=== PATIENT | male | born 1970 | race Caucasian/White ===

== ENCOUNTER → 2018-05-11 08:38 | Outpatient (CLI) | payer OTHER, SELFPAY | PROVIDERS: Family Provider Family Medicine; PCP Family Medicine; Visit Provider Registered Nurse | DX: I37.1 Nonrheumatic pulmonary valve insufficiency (principal); I51.9 Heart disease, unspecified | CPT/HCPCS: 82570; 83497 ==

== ENCOUNTER → 2018-10-28 08:50 | Outpatient (CLI) | payer OTHER, SELFPAY ==
[2018-10-28 10:59] LABS: Thyroid Stimulating Hormone 1.03 uIU/mL (0.47-4.68)
== END ==
PROVIDERS: Family Provider Family Medicine; PCP Family Medicine; Visit Provider Family Medicine
DX: E89.0 Postprocedural hypothyroidism (principal)
CPT/HCPCS: 36415; 84443

== ENCOUNTER → 2019-10-15 08:31 | Outpatient (CLI) | payer OTHER, SELFPAY ==
[2019-10-15 09:41] LABS: Thyroid Stimulating Hormone 0.95 uIU/mL (0.47-4.68)
== END ==
PROVIDERS: PCP Family Medicine; Visit Provider Family Medicine
DX: E89.0 Postprocedural hypothyroidism (principal)
CPT/HCPCS: 36415; 84443

== ENCOUNTER → 2020-07-04 09:02 | Outpatient (CLI) | payer OTHER, SELFPAY | PROVIDERS: PCP Family Medicine; Referring Provider Family Medicine; Visit Provider Family Medicine | DX: E89.0 Postprocedural hypothyroidism (principal) | CPT/HCPCS: 36415; 84443 ==

== ENCOUNTER → 2020-10-04 09:44 | Outpatient (CLI) | payer OTHER, SELFPAY ==
[2020-10-04 11:04] LABS: COVID19 -Nasal RAPID Negative (Negative)
== END ==
PROVIDERS: PCP Family Medicine; Visit Provider Nurse Practitioner
DX: Z20.828 Contact with and (suspected) exposure to other viral communicable diseases (principal)
CPT/HCPCS: 87635

== ENCOUNTER → 2021-02-07 09:41 | Outpatient (CLI) | payer OTHER, SELFPAY ==
[2021-02-07 10:53] LABS: Add Manual Diff / Slide Review NO; Basophils Absolute Auto 100 /uL (0-100); Basophils Percent Auto 0.9 % (0-2); Eosinophils Absolute Auto 100 /uL (0-450); Eosinophils Percent Auto 2.3 % (2-4); Hemoglobin 15.3 g/dL (13.5-17.5); Lymphocytes Absolute Auto 1200 /uL (1100-4500); Lymphocytes Percent Auto 20.8 % (25-40); Mean Corpuscular HGB Conc 33.9 % (30-36); Mean Corpuscular Hemoglobin 29.7 PG (26-34); Mean Corpuscular Volume 87.5 fL (80-100); Monocytes Absolute Auto 600 /uL (0-900); Monocytes Percent Auto 9.4 % (3-14); Neutrophils Absolute Auto 3900 /uL (1500-7000); Neutrophils Percent Auto 66.6 % (50-75); Platelet Count 285 X10^3/uL (150-400); Red Blood Cell Count 5.15 X10^6/uL (4.5-5.9); Red Cell Distribution Width 13.6 % (11.6-14.8); White Blood Cell Count 5.9 X10^3/uL (4.5-11.0)
[2021-02-07 11:10] LABS: Alanine Aminotransferase 21 IU/L (<50); Albumin 4.6 g/dL (3.5-5.0); Albumin Globulin Ratio 1.4 (1.0-2.8); Alkaline Phosphatase 56 U/L (38-126); Aspartate Aminotransferase 29 IU/L (17-59); Bilirubin Total 0.9 mg/dL (0.2-1.3); Blood Urea Nitrogen 17 mg/dL (9-20); Calcium 9.8 mg/dL (8.4-10.2); Carbon Dioxide 27 mmol/L (22-32); Chloride 102 mmol/L (98-107); Cholesterol 203 mg/dL (140-199); Estimated Glomerular Filt Rate > 60.0 mL/min (>60); Globulin 3.3 g/dL (1.7-4.1); Glucose 97 mg/dL (70-100); HDL Cholesterol 41 mg/dL (40-60); HEMOLYSIS < 15 (0-50); LDL Cholesterol Calculated 139 mg/dL (<100); Potassium 4.2 mmol/L (3.4-5.1); Sodium 137 mmol/L (137-145); Total Protein 7.9 g/dL (6.3-8.2); Triglycerides 113 mg/dL (35-150)
[2021-02-07 13:26] LABS: Free T4, Direct Thyroxine 1.58 ng/dL (0.78-2.19)
== END ==
PROVIDERS: PCP Family Medicine; Referring Provider Family Medicine; Visit Provider Family Medicine
DX: E89.0 Postprocedural hypothyroidism (principal)
CPT/HCPCS: 36415; 80053; 80061; 84439; 84443; 85025

== ENCOUNTER → 2021-03-09 08:09 | Outpatient (CLI) | payer OTHER, SELFPAY ==
--- NOTE | 2021-03-09 08:10 | DI.US.S_ITS ---
PROCEDURE: US THYROID INDICATIONS: LEFT NECK MASS POST THYROIDECTOMY TECHNIQUE: Real-time scanning was performed of the thyroid gland, with image documentation. COMPARISON: None. FINDINGS: Prior complete thyroidectomy in 2002 by given history. There is a 4.4 x 2.1 x 2.8 cm predominantly solid mildly echogenic mass within the left thyroid bed. There is moderate vascularity present. IMPRESSION: 4.4 cm mass within the left thyroid bed which is moderately vascular. Underlying neoplasm cannot be excluded and sonographically directed fine-needle aspiration is recommended for pathologic diagnosis. Dictated by: Kavin CANTU Interpreted: Jesús Kenny MD on 03/09/2021 at 11:39 Transcribed by: IVELISSE on 03/09/2021 at 11:41 Approved by: Jesús Kenny M.D. on 03/09/2021 at 13:57
== END ==
PROVIDERS: PCP Family Medicine; Referring Provider Family Medicine; Visit Provider Family Medicine
DX: R22.1 Localized swelling, mass and lump, neck (principal); E07.9 Disorder of thyroid, unspecified
CPT/HCPCS: 76536

== ENCOUNTER → 2021-03-19 11:18 | Outpatient (CLI) | payer OTHER, SELFPAY ==
[2021-03-19 12:48] LABS: Prostate Specific Antigen Scrn 0.791 ng/mL (0.1-4.0)
== END ==
PROVIDERS: PCP Family Medicine; Referring Provider Family Medicine; Visit Provider Family Medicine
DX: Z12.5 Encounter for screening for malignant neoplasm of prostate (principal)
CPT/HCPCS: 36415; G0103

== ENCOUNTER → 2021-05-17 09:13 | Outpatient (CLI) | payer OTHER, SELFPAY ==
[2021-05-17 10:32] LABS: COVID19 -Nasal RAPID Negative (Negative)
== END ==
PROVIDERS: PCP Family Medicine; Visit Provider Specialist
DX: Z20.822 Contact with and (suspected) exposure to COVID-19 (principal)
CPT/HCPCS: 87635; C9803

== ENCOUNTER 2021-05-18 07:28 | Day surgery (SDC) | payer OTHER, SELFPAY ==
--- NOTE | 2021-05-18 | PATH_ITS ---
[facility] Accession Number: [id number] . 01 Material submitted: . body - 30CM . 02 Diagnosis: Colon at 30 cm, Biopsy: Tubular adenoma. MRV 05/22/2021 1022 Local . 02 Electronically signed: . Alen Babin MD, PhD, Pathologist NPI- [id number] . 01 Gross description: . 30CM: Received in formalin are multiple fragment(s) of kimball, soft tissue measuring 2.7 x 0.5 x 0.2 cm in aggregate submitted entirely in 1 cassette(s) /TARA 05/19/2021 0529 Local . 02 Pathologist provided ICD-10: D12.6 . 02 CPT . 083282 Performed at: 01 [facility] [address] [facility], [place], [place] [id number] MD Steven Green MD Phone: [phone] Performed at: 02 [facility] [address] [place], [place] [id number] MD Rosana Fernandez MD Phone: [phone]
[2021-05-18 07:51] VITALS: BP 119/70; PULSE 97; RESP 16; TEMP 36.4; O2SAT 99; BMI 25.1
[2021-05-18] MEDS: LACTATED RINGERS 1,000 ML 200 ML IV (08:01)
--- NOTE | 2021-05-18 08:32 | P.HP_ITS ---
History of Present Illness History of Present Illness Chief complaint: [facility] [place] Narrative: Patient is a gentleman here for his 1st colonoscopy for screening purposes. His prep went well. He is otherwise healthy except for hypothyroidism. His thyroid was removed due to a multinodular goiter. Patient History Medical History Hypothyroidism associated with surgical procedure Multinodular goiter Surgical History History of thyroidectomy Family & Social History Family History Brother Age: 47 Thyroid condition Father Age: 74 Diabetes mellitus Thyroid condition Grandmother Heart disease Mother Age: 73 Thyroid condition Social History: household members spouse Tobacco & Substance use: Smoking Status Never smoker alcohol intake current alcohol intake frequency 3 or more drinks per day Meds Home Medications and Allergies Home Medications Medication Instructions Recorded Confirmed Type fluticasone propionate 50 2 spray INTRANASAL PRN PRN #3 bot 11/02/18 05/18/21 Rx mcg/actuation nasal spray,suspension levothyroxine 125 mcg tablet 125 mcg PO QDAY #90 tab 02/14/21 05/18/21 Rx (Synthroid) sildenafil (pulm.hypertension) 20 60 mg PO DAILY #40 tab 02/14/21 05/18/21 Rx mg tablet (Revatio) zolpidem 10 mg tablet 10 mg PO HS #30 tab 02/14/21 05/18/21 Rx Allergies Allergy/AdvReac Type Severity Reaction Status Date / Time No Known Drug Allergies Allergy Verified 05/18/21 07:45 Review of Systems Review of Systems Narrative: Essentially healthy. No cough cold or asthma. No heart problems. No black or bloody bowel movements. No seizures or blackouts. Exam Vital Signs (past 8 hours): - 05/18/21 07:51 Temperature 97.5 F L Pulse Rate 97 H Respiratory Rate 16 Blood Pressure 119/70 Pulse Oximetry 99 Oxygen Delivery Method Room Air Oxygen Flow Rate 18 Narrative Exam Narrative: Pleasant cooperative patient no apparent distress. Lungs are clear to auscultation. No rales or rhonchi. Heart regular rate and rhythm no murmur gallop. Abdomen is soft nontender without mass. No obvious hernias. Patient is alert and oriented x3. Assessment & Plan Assessment & Plan narrative: The patient for a screening colonoscopy. I have discussed the procedure with them. Risks of bleeding, perforation which would necessitate major operation, failure to find remove all lesions, the potential tattoo were all discussed. All questions were answered. They wished to proceed.
--- NOTE | 2021-05-18 08:35 | PM.PREOP ---
Pre-operative Note COVID-19 COVID-19 status: Negative Result date/Date tested (Pos, Neg/Pending): 05/17/21 Interval Note History & Physical reviewed/Exam performed by Physician: Yes Changes to H&P: No ASA Class (for procedural sedation): I
[2021-05-18] MEDS: MIDAZOLAM 5 MG/5 ML VIAL IV (08:40)
[2021-05-18] MEDS: fentaNYL 250 MCG/5 ML INJ IV (08:40)
--- NOTE | 2021-05-18 09:08 | PM.OP.ENDO ---
Operative Date/Time/Diagnoses Date of procedure: 05/18/21 Time of procedure: 09:09 Pre-op diagnosis: Screening examination. Patient is 50 years of age. Post-op diagnosis: other (Single polyp removed located at 30 cm from the anal verge. Otherwise normal exam.) Procedure & Clinicians Study performed: Colonoscopy with hot snare polypectomy Same procedure as scheduled: Yes Indications: Screening Surgeon: Stevenson Rand Procedure Notes SCOAP/Timeout: Performed Procedure in detail: The patient was placed in the left lateral decubitus position and underwent IV sedation directed by the surgeon consisting of fentanyl and Versed. Digital exam was unremarkable. His prostate is normal without mass.. The scope was inserted and advanced through the rectum into the sigmoid, descending, transverse, and ascending colon. No lesions were seen including diverticulosis.. The cecum was reached identified by the ileocecal valve . The scope was gradually brought out. One Polyp was found at 30 cm from the anal verge. It was snared with a hot snare and removed. It appeared to be under a cm in size. The scope ultimately was retroflexed in the rectum. The appearance was normal.. The scope was removed and the patient tolerated the procedure well. Prep was good. Scope withdrawal time: 7 minutes(8.5 total) Sedation minutes: 23 Findings: polyp Specimen(s): other (Polyp at 30 cm) Complications: none Post-procedure Recommendations: Colonscopy in 5 years Follow up: as needed Disposition: PACU
[2021-05-18 09:10] VITALS: BP 98/75; PULSE 76; RESP 10; TEMP 36.5; O2SAT 93
[2021-05-18 09:15] VITALS: BP 101/71; PULSE 76; RESP 14; O2SAT 95
[2021-05-18 09:20] VITALS: BP 99/69; PULSE 68; RESP 12; O2SAT 93
[2021-05-18 09:27] VITALS: BP 99/65; PULSE 71; RESP 17; TEMP 35.7; O2SAT 96
== END 2021-05-18 09:47 | disposition home or self-care (01) ==
PROVIDERS: PCP Family Medicine; Referring Provider Specialist; Visit Provider Specialist
PROC: 0DJD8ZZ Inspection of Lower Intestinal Tract, Via Natural or Artificial Opening Endoscopic (ICD-10-PCS; CPT 45378; principal; 2021-05-18 08:30)
DX: Z12.11 Encounter for screening for malignant neoplasm of colon (principal); E89.0 Postprocedural hypothyroidism; D12.6 Benign neoplasm of colon, unspecified
CPT/HCPCS: 45385; 99152; J2250; J3010

== ENCOUNTER → 2022-05-09 08:14 | Outpatient (CLI) | payer OTHER, SELFPAY ==
[2022-05-09 09:24] LABS: Add Manual Diff / Slide Review NO; Basophils Absolute Auto 100 /uL (0-100); Basophils Percent Auto 1.1 % (0-2); Eosinophils Absolute Auto 0 /uL (0-450); Eosinophils Percent Auto 0.8 % (2-4); Hematocrit 42.8 % (41-53); Hemoglobin 14.6 g/dL (13.5-17.5); Lymphocytes Absolute Auto 900 /uL (1100-4500); Lymphocytes Percent Auto 19.8 % (25-40); Mean Corpuscular Hemoglobin 30.6 PG (26-34); Mean Corpuscular Volume 90.1 fL (80-100); Monocytes Absolute Auto 500 /uL (0-900); Monocytes Percent Auto 9.7 % (3-14); Neutrophils Absolute Auto 3200 /uL (1500-7000); Neutrophils Percent Auto 68.6 % (50-75); Platelet Count 292 X10^3/uL (150-400); Red Blood Cell Count 4.76 X10^6/uL (4.5-5.9); Red Cell Distribution Width 13.4 % (11.6-14.8); White Blood Cell Count 4.6 X10^3/uL (4.5-11.0)
[2022-05-09 10:46] LABS: Alanine Aminotransferase 15 IU/L (<50); Albumin 4.3 g/dL (3.5-5.0); Albumin Globulin Ratio 1.5 (1.0-2.8); Alkaline Phosphatase 53 U/L (38-126); Aspartate Aminotransferase 23 IU/L (17-59); BUN Creatinine Ratio 20.7 (6-22); Bilirubin Total 0.5 mg/dL (0.2-1.3); Blood Urea Nitrogen 18 mg/dL (9-20); Carbon Dioxide 28 mmol/L (22-32); Chloride 104 mmol/L (98-107); Cholesterol 174 mg/dL (140-199); Estimated Glomerular Filt Rate > 60 mL/min (>60); Globulin 2.8 g/dL (1.7-4.1); Glucose 102 mg/dL (70-100); HDL Cholesterol 40 mg/dL (40-60); HEMOLYSIS < 15 (0-50); LDL Cholesterol Calculated 119 mg/dL (<100); Potassium 4.2 mmol/L (3.4-5.1); Sodium 138 mmol/L (137-145); Total Protein 7.1 g/dL (6.3-8.2); Triglycerides 73 mg/dL (35-150)
[2022-05-09 11:07] LABS: TSH w/ Reflex to FT4 0.06 uIU/mL (0.47-4.68)
[2022-05-09 11:32] LABS: Free T4, Direct Thyroxine 1.58 ng/dL (0.78-2.19)
== END ==
PROVIDERS: PCP Family Medicine; Referring Provider Family Medicine; Visit Provider Family Medicine
DX: E89.0 Postprocedural hypothyroidism (principal); Z00.01 Encounter for general adult medical examination with abnormal findings
CPT/HCPCS: 36415; 80053; 80061; 84439; 84443; 85025

== ENCOUNTER → 2022-12-19 08:46 | Outpatient (CLI) | payer OTHER, SELFPAY ==
[2022-12-19 10:35] LABS: Free T4, Direct Thyroxine 1.62 ng/dL (0.78-2.19)
[2022-12-19 10:49] LABS: Thyroid Stimulating Hormone 0.154 uIU/mL (0.47-4.68)
== END ==
PROVIDERS: PCP Family Medicine; Referring Provider Student in an Organized Health Care Education/Training Program; Visit Provider Student in an Organized Health Care Education/Training Program
DX: E03.9 Hypothyroidism, unspecified (principal)
CPT/HCPCS: 36415; 84439; 84443

== ENCOUNTER → 2023-07-11 12:37 | Outpatient (CLI) | payer OTHER, SELFPAY ==
[2023-07-11 14:35] LABS: Free T4, Direct Thyroxine 1.39 ng/dL (0.78-2.19)
[2023-07-11 14:49] LABS: Thyroid Stimulating Hormone 0.294 uIU/mL (0.47-4.68)
[2023-07-11 14:51] LABS: Prostate Specific Antigen Scrn 0.837 ng/mL (0.1-4.0)
== END ==
PROVIDERS: PCP Family Medicine; Referring Provider Physician Assistant; Visit Provider Physician Assistant
DX: E89.0 Postprocedural hypothyroidism (principal); Z12.5 Encounter for screening for malignant neoplasm of prostate; Z80.42 Family history of malignant neoplasm of prostate
CPT/HCPCS: 36415; 84439; 84443; G0103

== ENCOUNTER → 2023-09-06 09:38 | Outpatient (CLI) | payer OTHER, SELFPAY ==
[2023-09-06 11:48] LABS: TSH w/ Reflex to FT4 1.34 uIU/mL (0.47-4.68)
== END ==
PROVIDERS: PCP Family Medicine; Referring Provider Physician Assistant; Visit Provider Physician Assistant
DX: E03.9 Hypothyroidism, unspecified (principal)
CPT/HCPCS: 36415; 84443

== ENCOUNTER → 2023-11-19 07:42 | Outpatient (CLI) | payer OTHER, SELFPAY ==
--- NOTE | 2023-11-19 | DI.US.S_ITS ---
PROCEDURE: US THYROID INDICATIONS: HYPOTHYROIDISM TECHNIQUE: Real-time scanning was performed of the thyroid gland, with image documentation. COMPARISON: [facility], US, US THYROID, 11/27/2022, 7:52. [facility], US, US THYROID, 03/09/2021, 8:32. FINDINGS: Right: Surgically absent Left: Thyroid lobe measures 6.2 x 3.7 x 2.8 cm, and is homogenous in echotexture. Isthmus: Surgically absent Nodule number: 1 Location: Mid lobe Size: 5.7 x 3.4 x 2.5 cm, previously 4.5 x 3.0 x 2.5 cm. Composition: Solid Echogenicity: Hypoechoic Shape: wider than tall. Margins: Smooth Echogenic foci: None Total points: 4 ACR TI-RADS category: 4 IMPRESSION: Continued enlargement of left large thyroid nodule. Consider core needle biopsy ACR TI-RADS definitions and recommendations: TI-RADS 1 (benign): 0 points. FNA not needed. TI-RADS 2 (not suspicious): 2 points. FNA not needed. TI-RADS 3 (mildly suspicious): 3 points. * FNA if 2.5 cm or larger, follow up if 1.5 cm or larger (at 1, 3, and 5 years). TI-RADS 4 (moderately suspicious): 4-6 points. * FNA if 1.5 cm or larger, follow up if 1 cm or larger (at 1, 2, 3, and 5 years). TI-RADS 5 (highly suspicious): 7 points or more. * FNA if 1 cm or larger, follow up if 0.5 cm or larger (every year for 5 years). Normal examination. Dictated by: Toan Rodriguez M.D. on 11/19/2023 at 11:00 Approved by: Toan Rodriguez M.D. on 11/19/2023 at 11:29
== END ==
LOC: US 07:42
PROVIDERS: PCP Family Medicine; Referring Provider Student in an Organized Health Care Education/Training Program; Visit Provider Student in an Organized Health Care Education/Training Program
DX: E03.9 Hypothyroidism, unspecified (principal); E04.1 Nontoxic single thyroid nodule
CPT/HCPCS: 76536

== ENCOUNTER → 2024-08-12 06:39 | Outpatient (CLI) | payer OTHER, SELFPAY ==
[2024-08-12 07:16] LABS: Add Manual Diff / Slide Review NO; Basophils Absolute Auto 0 /uL (0-100); Basophils Percent Auto 0.6 % (0-2); Eosinophils Absolute Auto 100 /uL (0-450); Eosinophils Percent Auto 1.7 % (2-4); Hematocrit 44.7 % (41-53); Lymphocytes Absolute Auto 1000 /uL (1100-4500); Lymphocytes Percent Auto 19.3 % (25-40); Mean Corpuscular HGB Conc 33.6 % (30-36); Mean Corpuscular Hemoglobin 30.8 PG (26-34); Mean Corpuscular Volume 91.5 fL (80-100); Monocytes Absolute Auto 500 /uL (0-900); Monocytes Percent Auto 8.8 % (3-14); Neutrophils Absolute Auto 3700 /uL (1500-7000); Neutrophils Percent Auto 69.6 % (50-75); Platelet Count 313 X10^3/uL (150-400); Red Blood Cell Count 4.89 X10^6/uL (4.5-5.9); Red Cell Distribution Width 13.1 % (11.6-14.8); White Blood Cell Count 5.2 X10^3/uL (4.5-11.0)
[2024-08-12 07:34] LABS: Alanine Aminotransferase 18 IU/L (<50); Albumin 4.6 g/dL (3.5-5.0); Albumin Globulin Ratio 1.5 (1.0-2.8); Alkaline Phosphatase 45 U/L (38-126); Aspartate Aminotransferase 28 IU/L (17-59); BUN Creatinine Ratio 17.7 (6-22); Bilirubin Total 1.1 mg/dL (0.2-1.3); Blood Urea Nitrogen 17 mg/dL (9-20); Calcium 9.4 mg/dL (8.4-10.2); Carbon Dioxide 28 mmol/L (22-32); Chloride 104 mmol/L (98-107); Cholesterol 207 mg/dL (140-199); Estimated Glomerular Filt Rate > 60 mL/min (>60); Glucose 94 mg/dL (70-100); HDL Cholesterol 46 mg/dL (40-60); HEMOLYSIS < 15 (0-50); LDL Cholesterol Calculated 138 mg/dL (<100); Potassium 4.3 mmol/L (3.4-5.1); Sodium 138 mmol/L (137-145); Total Protein 7.6 g/dL (6.3-8.2); Triglycerides 113 mg/dL (35-150)
[2024-08-12 08:04] LABS: TSH w/ Reflex to FT4 1.49 uIU/mL (0.47-4.68)
[2024-08-12 11:21] LABS: Prostate Specific Antigen Scrn 0.898 ng/mL (0.1-4.0)
== END ==
PROVIDERS: Physician Assistant; PCP Family Medicine; Referring Provider Family Medicine; Visit Provider Family Medicine
DX: E89.0 Postprocedural hypothyroidism (principal); Q22.3 Other congenital malformations of pulmonary valve; Z79.899 Other long term (current) drug therapy; Z13.220 Encounter for screening for lipoid disorders; Z12.5 Encounter for screening for malignant neoplasm of prostate; Z80.42 Family history of malignant neoplasm of prostate; Z82.49 Family history of ischemic heart disease and other diseases of the circulatory system; E78.00 Pure hypercholesterolemia, unspecified
CPT/HCPCS: 36415; 80053; 80061; 84443; 85025; G0103